=== PATIENT | female | born 1995 | race Hispanic/Latino ===

== ENCOUNTER 2021-01-18 10:21 | Emergency (ER) | payer OTHER ==
[~2021-01-18] VITALS: Ht 170.2 cm; Wt 122.5 kg
[2021-01-18] MEDS ORDERED: DONNATAL/LIDOCAINE/MAALOX 30 ML SUSP PO SCH (10:45)
[2021-01-18] MEDS ORDERED: BELLADONNA ALK/PHENOBARBITAL 5 ML UDC ONE (10:55)
[2021-01-18] MEDS ORDERED: MAGNESIUM/ALUMINUM/SIMETHICONE 30 ML UDC ONE (10:55)
[2021-01-18] MEDS ORDERED: LIDOCAINE VISC 2% SOLN 15 ML UDC ONE (10:55)
== END 2021-01-18 11:42 | disposition home or self-care (01) ==
LOC: FSED 10:50
DX: R07.0 Pain in throat (principal); R09.89 Other specified symptoms and signs involving the circulatory and respiratory systems
CPT/HCPCS: 99282

== ENCOUNTER 2021-09-09 08:20 | Emergency (ER) | payer OTHER ==
[~2021-09-09] VITALS: Ht 170.2 cm; Wt 137.6 kg
[2021-09-09] MEDS ORDERED: birth control (08:49)
[2021-09-09] MEDS ORDERED: IBUPROFEN 600 MG TAB PO STA (08:53)
[2021-09-09] MEDS ORDERED: CYCLOBENZAPRINE HCL 10 MG TAB PO ONE (09:00)
[2021-09-09] MEDS ORDERED: NAPROSYN500 MG PO (09:34)
[2021-09-09] MEDS ORDERED: CYCLOBENZAPRINE5 MG PO (09:34)
== END 2021-09-09 09:50 | disposition home or self-care (01) ==
LOC: FSED 08:53
DX: M25.512 Pain in left shoulder (principal); R07.89 Other chest pain; E03.9 Hypothyroidism, unspecified
CPT/HCPCS: 71045; 81003; 81025; 93005; 99283